=== PATIENT | male | born 1990 ===

== ENCOUNTER 2019-11-16 07:31 | Day surgery (SDC) | payer BC ==
[~2019-11-16 07:31] MED LIST: Buffered Lidocaine 1% SYRIN* 1 ML/SYRINGE INTRADERM ONE; Lactated Ringers 1000 ML Bag* 1,000 ML IV SCH
[2019-11-16] MEDS ORDERED: ceFAZolin 2 GM PREMIX in ORs 2 GM/50 ML BAG ONE (07:37)
[2019-11-16] MEDS ORDERED: Lidocaine 1% INJ* 10 MG/ML 30 ML SDV ONE (08:14)
[2019-11-16] MEDS ORDERED: Dexamethasone IV* 4 MG/ML 1 ML (4 MG) ONE ×2 (08:15→09:07)
[2019-11-16] MEDS ORDERED: Bupivacaine 0.5% SDV PF* 30ML VIAL ONE (08:15)
[2019-11-16] MEDS ORDERED: Midazolam* 1 MG/ML 5 ML VIAL (5 MG) ONE ×2 (08:55→09:08)
[2019-11-16] MEDS ORDERED: fentaNYL* 50 MCG/ML 2 ML VIAL (100 MCG VIAL) ONE ×2 (09:04→09:42)
[2019-11-16] MEDS ORDERED: Lidocaine 2% PF * 5 ML VIAL ONE (09:10)
[2019-11-16] MEDS ORDERED: Ondansetron INJ* 2 MG/ML VIAL IV PRN (09:50)
[2019-11-16] MEDS ORDERED: oxyCODONE/Acetamin 5/325 MG* TAB PO PRN (09:50)
[2019-11-16] MEDS ORDERED: Naloxone* 0.4 MG/ML 1 ML VIAL IV PRN (09:50)
[2019-11-16] MEDS ORDERED: HYDROmorphone INJ1* 1 MG/ML SYRINGE IV PRN (09:50)
[2019-11-16] MEDS ORDERED: DiMENhydriNATE IV* 50 MG/ML VIAL IV PUSH PRN (09:50)
[2019-11-16] MEDS ORDERED: fentaNYL* 50 MCG/ML 2 ML VIAL (100 MCG VIAL) IV PRN (09:50)
[2019-11-16] MEDS ORDERED: Propofol* 10 MG/ML 20 ML BTL ONE (10:07)
[2019-11-16] MEDS ORDERED: Ketorolac INJ* 30 MG/ML 1 ML VIAL ONE (10:08)
[2019-11-16] MEDS ORDERED: Ondansetron INJ* 2 MG/ML VIAL ONE (10:08)
[2019-11-16 11:35] VITALS: BP 135/89
--- NOTE | 2019-11-16 18:57 | OP ---
DATE OF OPERATION: 11/16/19 - [facility] DATE OF : 89 SURGEON: Miller Caban DPM CHILDREN'S ATTENDANT: None. ANESTHESIA: MAC with local. PRE-OP DIAGNOSIS: Severe, chronic and painful bunion deformity on the left foot. POST-OP DIAGNOSIS: Severe, chronic and painful bunion deformity on the left foot. OPERATIVE PROCEDURE: Bunionectomy with closing base wedge osteotomy and phalangeal osteotomy on the left foot. PATHOLOGY: Degenerative bone. HEMOSTASIS: Pneumatic ankle tourniquet. ESTIMATED BLOOD LOSS: Less than 20 cc. MATERIALS: Three of the 3.0 mm cannulated Bridget screws. INDICATIONS: The patient with chronic left forefoot pain and deformity with large bunion deformity causing pain, wearing all shoes, and walking. Condition has worsened to a point where he cannot walk or wear shoes without pain and opts for surgery at this time to attempt to decrease the pain and improve his function and ability to wear closed shoes with less pain. DESCRIPTION OF PROCEDURE: The patient was brought to the operating room and placed on the operating table in supine position. The Anesthesia Department administered IV sedation and peripheral nerve block was performed about the left foot with a 1:1 mixture of 1% lidocaine plain and 0.5% Marcaine plain. The left foot was prepped and draped in usual fashion. Left foot was then exsanguinated with an Esmarch bandage and pneumatic ankle tourniquet was inflated to 250 mmHg about a well-padded left ankle. Attention was directed to the dorsomedial aspect of the left great toe joint where a curvilinear incision was made. The incision was deepened through the subcutaneous tissues with care being taken to retract neurovascular structures and cauterize superficial bleeders as needed. An inverted L-capsular incision was made to allow for exposure of the first metatarsal and great toe joint. There was noted to be hypertrophic bone at the medial aspect of the first metatarsal head and this was resected with a sagittal saw and care be taken to maintain the sagittal groove. A power bur was used to smooth rough edges. The surgical site was flushed with copious amounts of normal sterile saline. McGlamry elevator was used to free plantar lateral adhesions of sesamoid apparatus. The dissection was carried into the first metatarsal space and a traditional lateral release was performed releasing the conjoint tendon of the adductor hallucis, portion of lateral fibular sesamoid ligament, portion of lateral capsule and extensor hallucis brevis tendon was transected as well. This allowed relaxation of all lateral contractures. At the proximal portion of the metatarsal, a closing base wedge osteotomy was performed. Inter fixation achieved with the bone clamp and then wires from screw set. The position and correction was assessed from the C-arm and using standard technique two 3.0 mm cannulated screws were placed across the osteotomy site. The more proximal screw, a washer was used to reduce the chance of pull through. The surgical site was flushed with copious amounts of normal sterile saline. Next, the hallux interphalangeus had to be addressed and dissection was carried further distal medially with care be taken to retract nerve structures. We cauterized superficial bleeders as needed. The periosteal tissues reflected exposure of the proximal phalanx and a closing wedge osteotomy was performed at apex at the proximal lateral aspect of the proximal phalanx. Temporary fixation was achieved with the bone clamp. Assessed with the C-arm and using standard technique, a 3.0 mm cannulated striker screw was placed across the osteotomy site. The temporary fixation removed. The correction and fixation was assessed with the C-arm. Osteotomies were inspected and found to be solid with no detectable motion or gaping. Screws were all found to be 2 fingers tight. The redundant medial capsule was resected and a medial capsulorrhaphy was performed and the capsule and periosteal tissues were reapproximated and secured using 2-0 Vicryl holding hallux in the rectus position. Subcutaneous tissues were reapproximated with 4- 0 Vicryl and skin was closed with 5-0 nylon. 12 mg of dexamethasone phosphate was infiltrated about the surgical site and the incision was dressed with Xeroform gauze and a light sterile mildly compressive dressing was applied consisting of 4x4 gauze, Xiomara, and a light Coban wrap. The pneumatic ankle tourniquet was deflated about the left ankle. A prompt hyperemic response was noted at all 5 digits of the patient's left foot. Having appeared to tolerate the procedure and anesthesia well, the patient was transported via cart from the operating room to Recovery in satisfactory condition with capillary refill less than 3 seconds to all digits of the left foot. [id number]/[facility] #: [id number] MTDD
== END 2019-11-16 11:34 | disposition home or self-care (01) ==
LOC: OREAST 07:31
PROVIDERS: ATTEND Podiatrist Foot Surgery
DX: M21.612 Bunion of left foot (principal)
CPT/HCPCS: 76000; C1713; C1776; J0690; J1100; J1885; J2250; J2405; J2704; J3010; J3490